=== PATIENT | female | born 1990 | race Two or more races ===

== ENCOUNTER → 2017-05-09 | Outpatient (CLI) | payer OTHER ==
[~2017-05-09] VITALS: Ht 167.6 cm; Wt 72.6 kg
[~2017-05-09] MED LIST: ACID CONTROL150 MG PO; NEXIUM40 MG PO; RESTASIS MULTI5.5 ML BOTH EYES; SINGULAIR10 MG PO; SPRINTEC1 EACH PO; ZYRTEC10 M2 PO
== END | disposition home or self-care (01) ==
LOC: AMB 04-14 13:00 → OPR 04-14 14:30 → AMB 09:12
PROC: 0DB68ZX Excision of Stomach, Via Natural or Artificial Opening Endoscopic, Diagnostic (ICD-10-PCS; principal; 2017-05-09)
DX: K29.70 Gastritis, unspecified, without bleeding (principal); Z87.891 Personal history of nicotine dependence; Z91.012 Allergy to eggs; Z91.040 Latex allergy status
CPT/HCPCS: 88305; 88342 TC; J2250; J3010